=== PATIENT | male | born 1980 | race Caucasian/White ===

== ENCOUNTER 2018-09-15 22:00 | Emergency (ER) | payer BC ==
[~2018-09-15] VITALS: Ht 175.3 cm; Wt 90.7 kg
[2018-09-15 22:20] VITALS: BP_SYST 187
[2018-09-15] MEDS ORDERED: cloNIDine HCL 0.1 MG TABLET PO ONE (23:00)
[2018-09-15] MEDS ORDERED: hydrALAZINE HCL 20 MG/ML VIAL IM ONE (23:30)
[2018-09-16 00:25] VITALS: BP_SYST 157
== END 2018-09-16 00:30 | disposition home or self-care (01) ==
LOC: SED 22:00
DX: I10 Essential (primary) hypertension (principal)
CPT/HCPCS: 96372; 99283; J0360